=== PATIENT | female | born 2000 | race Caucasian/White ===

== ENCOUNTER 2022-01-21 13:15 | Day surgery (SDC) | payer OTHER ==
[2022-01-21] MEDS ORDERED: Iopamidol 300 61% 100 ML VIAL FS ONE (13:56)
[2022-01-21 14:09] LABS: #Eosinphils 0.1 10x3/uL (0.0-0.5); #Monocytes 0.7 10x3/uL (0.0-1.1); #Neutrophils 8.2 10x3/uL (1.5-8.4); %Basophils 0.3 % (0.0-2.0); %Eosinophils 0.8 % (0.0-6.0); %Neutrophils 74.2 % (40.0-75.0); Hemoglobin 12.1 g/dL (12.0-15.5); Mean Corpuscular HGB CONC 35.6 g/dL (32.0-36.0); Mean Corpuscular Hemoglobin 32.6 pg (27.0-33.0); Mean Corpuscular Volume 91.6 fl (81.6-98.3); Mean Platelet Volume 10.6 fl (7.4-10.4); Platelet Count 224 10x3/uL (150-450); RBC Distribution Width 12.9 % (11.5-14.5); Red Blood Cell (RBC) Count 3.71 10x6/uL (3.90-5.03)
[2022-01-21 14:21] LABS: ALT (SGPT) 15 U/L (8-55); AST (SGOT) 18 U/L (5-34); Albumin 3.7 g/dL (3.5-5.0); Alkaline Phosphatase 59 U/L (40-110); Anion Gap 16 mmol/L (10-20); BUN (Urea Nitrogen) 8 mg/dL (7.0-18.7); Bilirubin, Total 0.3 mg/dL (0.2-1.2); Calc. Creatinine Clearance 0 mL/min (70-130); Calcium 9.3 mg/dL (7.8-10.44); Carbon Dioxide 21 mmol/L (22-29); Chloride 105 mmol/L (98-107); Estimated GFR 127; Glucose 98 mg/dL (70-105); Potassium 4.1 mmol/L (3.5-5.1); Protein, Total 6.7 g/dL (6.0-8.3); Sodium 138 mmol/L (136-145)
[2022-01-21] MEDS ORDERED: Ondansetron PF 4 MG/2 ML Vial ONE ×2 (14:45→15:10)
[2022-01-21] MEDS ORDERED: Morphine 4 MG/ML VIAL ONE ×2 (14:45→15:10)
[2022-01-21 15:29] LABS: Bilirubin Neg (Negative); Blood, Urine Negative (Negative); Clarity Clear (Clear); Glucose, Urine (Dipstick) Normal (Negative); Ketone, Urine Negative (Negative); Leukocyte 25 (Negative); Nitrite Negative (Negative); Protein, Urine (Dipstick) Negative (Neg-Trace); Specific Gravity, Urine 1.015 (1.002-1.036); Urobilinogen Normal mg/dL (Less than 2)
[2022-01-21 15:43] LABS: Bacteria/HPF 2+ HPF (None Seen); Mucous/LPF 2+ LPF (<2+); RBC/HPF 0-3 HPF (0-3)
[2022-01-21 16:33] VITALS: BMI 31.5
[2022-01-21] MEDS ORDERED: HYDROcodone/Acetaminophen 5/325 mg Tablet PO PRN (18:58)
[2022-01-21] MEDS ORDERED: hydrALAZINE 20 MG/ML VIAL SLOW IVP PRN (18:58)
== END 2022-01-21 20:03 | disposition home or self-care (01) ==
LOC: CSHERS 13:15 → CSHLD/OP 16:19
PROVIDERS: ATTEND Obstetrics & Gynecology
DX: O9A.212 Injury, poisoning and certain other consequences of external causes complicating pregnancy, second trimester (principal); R10.9 Unspecified abdominal pain; M54.9 Dorsalgia, unspecified; Z3A.21 21 weeks gestation of pregnancy; V89.2XXA Person injured in unspecified motor-vehicle accident, traffic, initial encounter; Y92.411 Interstate highway as the place of occurrence of the external cause
CPT/HCPCS: 71045; 74177; 80053; 81003; 81015; 85025; 86900; 86901; 93005; 96374; 96375; 99282; G0390; J2270; J2405; Q9967

== ENCOUNTER 2022-01-25 04:11 | Emergency (ER) | payer OTHER ==
[2022-01-25] MEDS ORDERED: HYDROcodone/Acetaminophen 5/325 mg Tablet ONE (04:37)
[2022-01-25] MEDS ORDERED: Cyclobenzaprine 10 MG TAB ONE (04:37)
== END 2022-01-25 05:10 | disposition home or self-care (01) ==
LOC: CSHERS 04:11
DX: O9A.212 Injury, poisoning and certain other consequences of external causes complicating pregnancy, second trimester (principal); S30.1XXA Contusion of abdominal wall, initial encounter; S20.219A Contusion of unspecified front wall of thorax, initial encounter; Z3A.22 22 weeks gestation of pregnancy
CPT/HCPCS: 71046; 93005

== ENCOUNTER 2022-05-08 16:21 | Day surgery (SDC) | payer OTHER ==
[2022-05-08 17:07] LABS: Fetal Membranes Rupture No Membranes Rupture (No Rupture)
[2022-05-08] MEDS ORDERED: hydrALAZINE 20 MG/ML VIAL SLOW IVP PRN (18:01)
[2022-05-08 21:20] LABS: Bilirubin Neg (Negative); Blood, Urine Negative (Negative); Clarity Clear (Clear); Glucose, Urine (Dipstick) Normal (Negative); Ketone, Urine 150 mg/dL (Negative); Leukocyte Negative (Negative); Nitrite Negative (Negative); Protein, Urine (Dipstick) Negative (Neg-Trace); Urobilinogen Normal mg/dL (Less than 2)
[2022-05-08 21:29] LABS: Bacteria/HPF 1+ HPF (None Seen); RBC/HPF 0-3 HPF (0-3); Squamous Epithelial 0-3 HPF (0-3); Transitional Epithelial 0-3 HPF (None Seen); WBC/HPF 0-3 HPF (0-3)
[2022-05-08 21:31] LABS: Urine Culture Reflex Yes Yes
[2022-05-08] MEDS ORDERED: Lactated Ringer's 1,000 ML IV SCH (22:00)
[2022-05-08 22:55] LABS: #Eosinphils 0.1 10x3/uL (0.0-0.5); #Monocytes 0.8 10x3/uL (0.0-1.1); #Neutrophils 10.8 10x3/uL (1.5-8.4); %Basophils 0.2 % (0.0-2.0); %Eosinophils 0.5 % (0.0-6.0); %Lymphocytes 16.5 % (18.0-47.0); %Monocytes 5.9 % (0.0-10.0); %Neutrophils 76.3 % (40.0-75.0); Hemoglobin 12.4 g/dL (12.0-15.5); Mean Corpuscular HGB CONC 34.3 g/dL (32.0-36.0); Mean Corpuscular Hemoglobin 30.9 pg (27.0-33.0); Mean Platelet Volume 10.7 fl (7.4-10.4); Platelet Count 228 10x3/uL (150-450); RBC Distribution Width 14.1 % (11.5-14.5); Red Blood Cell (RBC) Count 4.01 10x6/uL (3.90-5.03); White Blood Cell (WBC) Count 14.2 10x3/uL (3.5-10.5)
[2022-05-08 23:04] LABS: ALT (SGPT) 7 U/L (8-55); AST (SGOT) 12 U/L (5-34); Albumin 3.1 g/dL (3.5-5.0); Alkaline Phosphatase 116 U/L (40-110); Anion Gap 15 mmol/L (10-20); BUN (Urea Nitrogen) 6 mg/dL (7.0-18.7); Bilirubin, Total 0.3 mg/dL (0.2-1.2); Calc. Creatinine Clearance 0 mL/min (70-130); Calcium 7.8 mg/dL (7.8-10.44); Carbon Dioxide 18 mmol/L (22-29); Chloride 110 mmol/L (98-107); Estimated GFR 129; Globulin 2.6 g/dL (2.4-3.5); Glucose 85 mg/dL (70-105); Potassium 3.1 mmol/L (3.5-5.1); Protein, Total 5.7 g/dL (6.0-8.3); Sodium 140 mmol/L (136-145)
[2022-05-08 23:26] LABS: Syphilis Antibody Nonreactive (Nonreactive); Syphilis Antibody Index 0.06 S/CO (<1.00 Non-Reactive)
[2022-05-08 23:28] LABS: HBSAg Index 0.15 S/CO (0-0.99); Hep B Surf Ag Non-Reactive S/CO (NonReactive)
[2022-05-08] MEDS ORDERED: Potassium Chloride 20 MEQ TAB PO SCH (23:59)
[2022-05-09 02:42] VITALS: BMI 36.8
== END 2022-05-09 03:23 | disposition home or self-care (01) ==
LOC: CSHLD/OP 16:21
PROVIDERS: ATTEND Obstetrics & Gynecology
DX: O47.03 False labor before 37 completed weeks of gestation, third trimester (principal); O26.853 Spotting complicating pregnancy, third trimester; Z3A.36 36 weeks gestation of pregnancy
CPT/HCPCS: 36415; 76819; 80053; 81001; 84112; 85025; 86780; 86850; 86900; 86901; 87086; 87340; 87480; 87510; 87660

== ENCOUNTER 2022-05-27 14:12 | Inpatient (IN) | payer OTHER ==
[2022-05-27 15:34] LABS: Fetal Membranes Rupture RUPTURE DETECTED (No Rupture)
[2022-05-27 16:28] VITALS: BMI 36.8
[2022-05-27] MEDS ORDERED: Ibuprofen 800 MG TAB PO PRN (16:40)
[2022-05-27] MEDS ORDERED: HYDROcodone/Acetaminophen 5/325 mg Tablet PO PRN ×2 (16:40)
[2022-05-27] MEDS ORDERED: Lidocaine 1% (PF) 30 ML VIAL SC PRN (16:40)
[2022-05-27 16:45] LABS: Mean Corpuscular HGB CONC 33.8 g/dL (32.0-36.0); Mean Corpuscular Hemoglobin 30.8 pg (27.0-33.0); Mean Platelet Volume 10.7 fl (7.4-10.4); Platelet Count 232 10x3/uL (150-450); RBC Distribution Width 14.3 % (11.5-14.5); White Blood Cell (WBC) Count 10.9 10x3/uL (3.5-10.5)
[2022-05-27] MEDS ORDERED: NS w/ Oxytocin 30 units 500 ML IV SCH ×2 (16:45)
[2022-05-27 17:22] LABS: Syphilis Antibody Nonreactive (Nonreactive); Syphilis Antibody Index 0.05 S/CO (<1.00 Non-Reactive)
[2022-05-27 17:24] LABS: HBSAg Index 0.23 S/CO (0-0.99); Hep B Surf Ag Non-Reactive S/CO (NonReactive)
[2022-05-28] MEDS ORDERED: Fentanyl 2 mcg/Bup 0.1% Cadd 100 ML ONE (03:55)
[2022-05-28] MEDS ORDERED: Moisturizing Cream (Eucerin) 113 GM JAR TOP PRN (04:37)
[2022-05-28] MEDS ORDERED: ePHEDrine Sulfate 50 MG/10 ML VIAL SLOW IVP PRN (04:37)
[2022-05-28] MEDS ORDERED: Ondansetron PF 4 MG/2 ML Vial IVP PRN ×2 (04:37→18:02)
[2022-05-28] MEDS ORDERED: Acetaminophen 325 MG TAB PO PRN (04:37)
[2022-05-28] MEDS ORDERED: Lactated Ringer's 500 ML IV PRN (04:37)
[2022-05-28] MEDS ORDERED: diphenhydrAMINE 50 MG/ML VIAL IVP PRN (04:37)
[2022-05-28] MEDS ORDERED: Naloxone HCl 0.4 mg/ml Vial IVP PRN ×2 (04:37)
[2022-05-28] MEDS ORDERED: Promethazine HCl 25 MG/ML VIAL IM PRN (04:37)
[2022-05-28] MEDS ORDERED: Communication Order-Pharmacy FS SCH (04:45)
[2022-05-28] MEDS ORDERED: Fentanyl 2 mcg/Bupivacaine 0.1% Cassette 100 ML EPIDURAL SCH (04:45)
[2022-05-28] MEDS ORDERED: Fentanyl 100 MCG/2 ML VIAL ONE (07:30)
[2022-05-28 18:02] LABS: SARS-CoV-2 NAA Rapid Test Not Detected (NotDetected)
[2022-05-28] MEDS ORDERED: Bisacodyl 10 MG SUPP PR PRN (18:02)
[2022-05-28] MEDS ORDERED: HYDROcodone/Acetaminophen 5/325 mg Tablet PO PRN ×2 (18:02)
[2022-05-28] MEDS ORDERED: diphenhydrAMINE 25 MG CAP PO PRN (18:02)
[2022-05-28] MEDS ORDERED: Milk Of Magnesia 30 ML UDCUP PO PRN (18:02)
[2022-05-28] MEDS ORDERED: Preparation H Ointment 28 GM TUBE PR PRN (18:02)
[2022-05-28] MEDS ORDERED: NS w/ Oxytocin 30 units 500 ML IV SCH (18:02)
[2022-05-28] MEDS ORDERED: Boostrix 0.5 ML (Tdap) VIAL (>/=7 yrs of age) IM ONE (18:02)
[2022-05-28] MEDS ORDERED: Benzocaine-Menthol 82.5 ML CAN TOP PRN (18:02)
[2022-05-28] MEDS ORDERED: hydrALAZINE 20 MG/ML VIAL SLOW IVP PRN (18:02)
[2022-05-28] MEDS ORDERED: Ferrous Sulfate 325 MG TAB PO SCH (18:45)
[2022-05-29] MEDS: Docusate 100 MG CAP PO SCH ×3 (00:13→23:40)
[2022-05-29] MEDS: Ibuprofen 800 MG TAB PO SCH ×4 (00:14→23:40)
[2022-05-29] MEDS: Ferrous Sulfate 325 MG TAB PO SCH ×2 (07:36→17:01)
[2022-05-29] MEDS: Prenatal Vitamin 1 TAB PO SCH (09:02)
[2022-05-30] MEDS: Ibuprofen 800 MG TAB PO SCH (06:15)
[2022-05-30] MEDS: Ferrous Sulfate 325 MG TAB PO SCH (08:28)
[2022-05-30 08:32] VITALS: BP 115/72; TEMP 98.1
[2022-05-30] MEDS: Docusate 100 MG CAP PO SCH (08:41)
[2022-05-30] MEDS: Prenatal Vitamin 1 TAB PO SCH (08:41)
== END 2022-05-30 11:50 | disposition home or self-care (01) | DRG 807 ==
LOC: CSHLD/OP 14:12 → CSHLD 15:04 → CSHPP 05-28 21:45
PROVIDERS: ADMIT Obstetrics & Gynecology; ATTEND Obstetrics & Gynecology
PROC: 10E0XZZ Delivery of Products of Conception, External Approach (ICD-10-PCS; principal; 2022-05-28)
PROC: 0KQM0ZZ Repair Perineum Muscle, Open Approach (ICD-10-PCS; 2022-05-28)
DX: O42.02 Full-term premature rupture of membranes, onset of labor within 24 hours of rupture (principal); Z37.0 Single live birth; Z20.822 Contact with and (suspected) exposure to COVID-19; Z3A.39 39 weeks gestation of pregnancy; O70.1 Second degree perineal laceration during delivery; O76 Abnormality in fetal heart rate and rhythm complicating labor and delivery; O69.81X0 Labor and delivery complicated by cord around neck, without compression, not applicable or unspecified; O32.8XX0 Maternal care for other malpresentation of fetus, not applicable or unspecified
CPT/HCPCS: 51702; 84112; 85027; 86780; 86850; 86900; 86901; 87340; 99285; J2405; J2590; U0002